=== PATIENT | female | born 1990 | race Asian ===

== ENCOUNTER → 2023-08-22 11:08 | Outpatient (REF) | payer OTHER, SELFPAY | LOC: REG 11:08 | PROVIDERS: ATTENDING PHYSICIAN Obstetrics & Gynecology | DX: Z34.93 Encounter for supervision of normal pregnancy, unspecified, third trimester (principal) | CPT/HCPCS: 36415; 86850; 86900; 86901; J2790 ==

== ENCOUNTER → 2023-08-23 08:59 | Outpatient (REF) | payer OTHER, SELFPAY | LOC: PNTC 08:59 | PROVIDERS: ATTENDING PHYSICIAN Obstetrics & Gynecology | DX: O36.5990 Maternal care for other known or suspected poor fetal growth, unspecified trimester, not applicable or unspecified (principal) | CPT/HCPCS: 76816 ==

== ENCOUNTER → 2023-10-26 11:14 | Outpatient (REF) | payer OTHER, SELFPAY | LOC: PNTC 11:14 | PROVIDERS: ATTENDING PHYSICIAN Obstetrics & Gynecology | DX: Z87.59 Personal history of other complications of pregnancy, childbirth and the puerperium (principal) | CPT/HCPCS: 36415; 76816; 86850; 86870; 86900; 86901 ==

== ENCOUNTER 2023-11-06 02:29 | Inpatient (IN) | payer OTHER, SELFPAY ==
[2023-11-06 02:42] VITALS: BMI 29.3
[2023-11-06 02:43] VITALS: BP 112/66
[2023-11-06] MEDS: PITOCIN 30 UNITS/NSS 500 ML IV (03:22)
[2023-11-06] MEDS: XYLOCAINE-MPF 1% VIAL 30 ML INFIL (03:25)
[2023-11-06 03:39] LABS: % Basophils 0.3 % (0-2); % Eosinophils 3.3 % (0-6); % Immature Granulocytes 0.9 % (0-0.5); % Lymphocytes 30.2 % (20.5-51.1); % Monocytes 8.4 % (1.7-9.3); % Neutrophils 56.9 % (42.2-75.2); Absolute Eosinophils 0.4 10^3/uL (0-0.7); Absolute Immature Granulocytes 0.1 10^3/uL (0-0.05); Absolute Lymphocytes 3.4 10^3/uL (1.2-3.4); Absolute Monocytes 0.9 10^3/uL (0.1-0.6); Absolute Neutrophils 6.3 10^3/uL (1.4-6.5); Hematocrit 36.6 % (37.0-47.0); Hemoglobin 13.1 g/dL (12.0-16.0); Mean Corp Hgb Conc. 35.8 g/dL (33.0-37.0); Mean Corpuscular Hgb 32.1 pg (27.0-31.0); Mean Corpuscular Volume 89.7 fL (81.0-99.0); Mean Platelet Volume 11.5 fL (7.4-10.4); Nucleated Red Blood Cells % 0 %; Platelet Count 172 10^3/uL (130-400); Red Blood Cell Count 4.08 10^6/uL (4.20-5.40); Red Cell Dist. Width 12.7 % (11.5-14.5); White Blood Cell Count 11.1 10^3/uL (4.8-10.8)
[2023-11-06] MEDS: MOTRIN 600 MG PO ×2 (04:43→16:28)
[2023-11-06] MEDS: PRENATAL PLUS PO (13:27)
[2023-11-07] MEDS: MOTRIN 600 MG PO ×2 (03:36→15:11)
[2023-11-07 06:22] LABS: Hematocrit 34.1 % (37.0-47.0); Hemoglobin 11.8 g/dL (12.0-16.0)
[2023-11-07] MEDS: PRENATAL PLUS 1 TABLET PO (07:42)
[2023-11-07] MEDS: HYPERRHO S-D 1500 UNIT IM (09:11)
[2023-11-08] MEDS: MOTRIN 600 MG PO ×2 (03:21→09:42)
[2023-11-08] MEDS: PRENATAL PLUS 1 TABLET PO (08:14)
[2023-11-08] MEDS: SENOKOT-S 1 TABLET PO (08:14)
--- NOTE | 2023-11-08 11:53 | CM ---
Met with new mother James at bedside
Mom reports she lives with her and 3 sons ages 9,8 and 18 months. Mom reports her is away on business and will return at the end of the week. She has support - father and other family members live nearby.
Mom has named her son Pinky Holland. She plans to breast feed her infant. She does not have a breast pump. Mom was given order form for breast pump with instructions.
Mom plans to take to [facility] for peds - appt scheduled for tomorrow
Mom reports she has supplies at home for infant - crib, car seat, clothing, etc
Given info on VN program through [facility] - Will send referral.
Given information on the WIC program and how to apply.
[2023-11-08 14:27] LABS: Syphilis/T. pallidum Ab Reflex Negative (Negative)
== END 2023-11-08 13:47 | disposition home or self-care (01) | DRG 807 ==
LOC: LDRP 02:29
PROVIDERS: ADMITTING PHYSICIAN Obstetrics & Gynecology; FAMILY PHYSICIAN Family Medicine
PROC: 6A550ZT Pheresis of Cord Blood Stem Cells, Single (ICD-10-PCS; 2023-11-06)
PROC: 0KQM0ZZ Repair Perineum Muscle, Open Approach (ICD-10-PCS; 2023-11-06)
PROC: 10E0XZZ Delivery of Products of Conception, External Approach (ICD-10-PCS; 2023-11-06)
PROC: 3E0234Z Introduction of Serum, Toxoid and Vaccine into Muscle, Percutaneous Approach (ICD-10-PCS; 2023-11-07)
DX: O69.81X0 Labor and delivery complicated by cord around neck, without compression, not applicable or unspecified (principal); Z37.0 Single live birth; Z3A.39 39 weeks gestation of pregnancy; O70.1 Second degree perineal laceration during delivery; Z23 Encounter for immunization; Z88.1 Allergy status to other antibiotic agents; Z91.013 Allergy to seafood
CPT/HCPCS: 85014; 85018; 85025; 85461; 86780; 86850; 86900; 86901; J2790

== ENCOUNTER → 2024-08-06 09:07 | Outpatient (REF) | payer OTHER, SELFPAY | LOC: RAD 09:07 | PROVIDERS: ATTENDING PHYSICIAN Student in an Organized Health Care Education/Training Program; FAMILY PHYSICIAN Family Medicine | DX: R10.2 Pelvic and perineal pain (principal) | CPT/HCPCS: 76830; 76856 ==

== ENCOUNTER 2024-08-30 11:48 | Emergency (ER) | payer OTHER, SELFPAY ==
[2024-08-30 11:58] VITALS: BP 103/56
[2024-08-30 12:02] VITALS: BP 100/66
[2024-08-30 12:31] LABS: % Basophils 0.4 % (0-2); % Eosinophils 2.5 % (0-6); % Immature Granulocytes 0.2 % (0-0.5); % Lymphocytes 44.5 % (20.5-51.1); % Monocytes 9.5 % (1.7-9.3); % Neutrophils 42.9 % (42.2-75.2); Absolute Eosinophils 0.1 10^3/uL (0-0.7); Absolute Lymphocytes 2.5 10^3/uL (1.2-3.4); Absolute Monocytes 0.5 10^3/uL (0.1-0.6); Absolute Neutrophils 2.5 10^3/uL (1.4-6.5); Hematocrit 37.1 % (37.0-47.0); Hemoglobin 12.5 g/dL (12.0-16.0); Mean Corp Hgb Conc. 33.7 g/dL (33.0-37.0); Mean Corpuscular Hgb 29.3 pg (27.0-31.0); Mean Corpuscular Volume 87.1 fL (81.0-99.0); Mean Platelet Volume 9.7 fL (7.4-10.4); Nucleated Red Blood Cells % 0 %; Platelet Count 237 10^3/uL (130-400); Red Blood Cell Count 4.26 10^6/uL (4.20-5.40); Red Cell Dist. Width 11.8 % (11.5-14.5); White Blood Cell Count 5.7 10^3/uL (4.8-10.8)
[2024-08-30 12:34] LABS: HCG, Serum Qualitative Screen Negative
[2024-08-30 12:46] LABS: ALT (SGPT) 14 U/L (0-35); AST (SGOT) 22 U/L (14-36); Albumin 4.3 g/dl (3.5-5.0); Alkaline Phosphatase 67 U/L (38-126); Blood Urea Nitrogen 12 mg/dl (7-17); Calcium 9.5 mg/dl (8.4-10.2); Carbon Dioxide 25 mmol/L (22-30); Chloride 104 mmol/L (98-107); Glucose 96 mg/dl (70-99); Potassium 4.1 mmol/L (3.5-5.1); Sodium 137 mmol/L (135-145); Total Bilirubin 0.4 mg/dl (0.2-1.3); Total Protein 6.9 g/dl (6.3-8.2); eGFR > 60.00
[2024-08-30 12:50] LABS: Troponin I < 0.012 ng/ml
--- NOTE | 2024-08-30 15:25 | ED.GENMED ---
History of Present Illness
<Edin Mireles Jr., PA-C - Last Filed: 08/30/24 15:29>
General
Chief Complaint: Numbness
Source: patient
Exam Limitations: none
Time Seen by Provider: 08/30/24 14:38
Nursing documentation reviewed up to this point in time: agreed with
History of Present Illness
History of Present Illness:
34-year-old female presenting to the emergency department today with concerns of tingling and paresthesia to her fingertips as well as toes over the past week initially was intermittent but somewhat ongoing over the past 2 days or so. Had a brief
episode of chest and back pain few days ago that is since resolved not ongoing. No shortness of breath no recent trauma surgery immobilization, history of blood clots.
Review of Systems
<RUPERTO Corado Jr. Last Filed: 08/30/24 15:29>
Review of Systems
Allergies reviewed?: Yes
All Other Systems: ROS reviewed and negative except as documented in HPI and ROS
Phy Exam
<RUPERTO Corado Jr. Last Filed: 08/30/24 15:29>
Physical Exam
Physical Exam:
GENERAL: Alert , in no apparent distress
EYE: pupils equal and reactive
NECK: Supple, no significant adenopathy.
ENT: o/p clr, mmm.
CARDIAC: Regular rate and rhythm .
LUNGS: Clear breath sounds bilaterally, no acute respiratory distress, no wheezes/rales/rhonchi
ABDOMEN: Soft, without focal tenderness, no r/g, no cvat
NEUROLOGICAL: Alert and oriented, patient claims that only on the palms of her fingers and soles of her feet very distally all of her toes that she have some slight decrease sensation no objective neurologic findings on normal neuroexam. 5 out of 5
upper and lower extremity strength normal sensation with palpating bilaterally normal patellar reflex as well as elbow reflex. Normal coordination with ambulation.
SKIN: Warm and dry, skin intact.
MUSCULOSKELETAL: No edema, well perfused.
PSYCH: Normal and appropriate interaction.
Course
<Edin Mireles Jr., PA-C - Last Filed: 08/30/24 15:29>
Orders/Labs/Results
Orders:
Orders
08/30/24 12:03
Electrocardiogram (*1) Urgent
Reason for Study: Chest Pain
EKG- Treatment ONCE
Test Result ONCE
08/30/24 12:12
Complete Blood Count/With Diff Urgent
Comprehensive Metabolic Panel Urgent
HCG, Serum Qualitative Screen Urgent
Lyme Progressive Urgent
Comment: ADD ON
TSH Reflex To Free T4 Urgent
Comment: ADD ON
Troponin I Urgent
Vitamin B12 Urgent
Comment: ADD ON
08/30/24 12:33
CT Head W/o Iv Contrast Urgent
Comment:
Reason For Exam: B/L upper and lower extremity numbness
08/30/24 14:48
Add On- LAB Urgent
Tests Added?: B12, tsh free t4, lyme progressive
Abnormal Lab Results
08/30/24
12:12
Monocytes % 9.5 H %
(1.7-9.3)
08/30/24 12:12
08/30/24 12:12
Vital Signs
Initial and Last Documented VS:
Initial Vital Signs
Temp Pulse Resp BP Pulse Ox
36.8 C 74 18 103/56 99
08/30/24 11:58 08/30/24 11:58 08/30/24 11:58 08/30/24 11:58 08/30/24 11:58
Last Documented Vital Signs
Temp Pulse Resp BP Pulse Ox
36.8 C 76 18 102/70 99
08/30/24 11:58 08/30/24 15:41 08/30/24 15:41 08/30/24 15:41 08/30/24 15:41
<Juan A Felder MD - Last Filed: 08/30/24 18:57>
Orders/Labs/Results
Orders:
Orders
08/30/24 12:03
Electrocardiogram (*1) Urgent
Reason for Study: Chest Pain
EKG- Treatment ONCE
Test Result ONCE
08/30/24 12:12
Complete Blood Count/With Diff Urgent
Comprehensive Metabolic Panel Urgent
HCG, Serum Qualitative Screen Urgent
Lyme Progressive Urgent
Comment: ADD ON
TSH Reflex To Free T4 Urgent
Comment: ADD ON
Troponin I Urgent
Vitamin B12 Urgent
Comment: ADD ON
08/30/24 12:33
CT Head W/o Iv Contrast Urgent
Comment:
Reason For Exam: B/L upper and lower extremity numbness
08/30/24 14:48
Add On- LAB Urgent
Tests Added?: B12, tsh free t4, lyme progressive
Abnormal Lab Results
08/30/24
12:12
Monocytes % 9.5 H %
(1.7-9.3)
08/30/24 12:12
08/30/24 12:12
Vital Signs
Initial and Last Documented VS:
Initial Vital Signs
Temp Pulse Resp BP Pulse Ox
36.8 C 74 18 103/56 99
08/30/24 11:58 08/30/24 11:58 08/30/24 11:58 08/30/24 11:58 08/30/24 11:58
Last Documented Vital Signs
Temp Pulse Resp BP Pulse Ox
36.8 C 76 18 102/70 99
08/30/24 11:58 08/30/24 15:41 08/30/24 15:41 08/30/24 15:41 08/30/24 15:41
<Edin Mireles Jr., PA-C - Last Filed: 08/30/24 15:29>
MDM/Problems Addressed
MDM/Problems Addressed:
34-year-old female presenting to the emergency department with concerns of paresthesias to her fingertips and toes over the past week or so. Here no objective findings but some slight decrease sensation that symmetrical bilaterally. Does not seem
to be consistent with Guillain-Celaya�. Labs unremarkable here. Normal head CT normal EKG. Advised for close outpatient follow-up. Return precautions given.
<Edin Mireles Jr., PA-C - Last Filed: 08/30/24 15:29>
*Critical Care Note
Total Time (30-74mins, 75-104mins- exclusive of procedures): Not Applicable
ED Attending Note
<Edin Mireles Jr., PA-C - Last Filed: 08/30/24 15:29>
-
Portions of this chart may have been created with voice recognition software.� Occasional wrong word or��sound alike� substitutions may have occurred due to the inherent limitations of voice recognition software.
<Juan A Felder MD - Last Filed: 08/30/24 18:57>
ED Attending Note
Patient seen and examined by attending physician: Yes
ED Attending Note:
I have seen and evaluated the patient with a [id number] encounter. I have spoken to the advance practicer provider and involved in the medical history, the physical exam, medical decision making.
Evaluation and management service: agree unless noted differently below.
Results interpretation: agree unless noted differently below.
Focused HPI: 34-year-old female presents to the ER for evaluation of paresthesias. Patient reports that she started about a week ago with paresthesias in her hands and feet. She says that occasionally paresthesias right upper shins. She says she
has associated feeling of cold in her fingers and toes. She denies any associated weakness. She denies any change in her vision or speech. She denies any other complaints. Her symptoms seem to be intermittent.
Physical exam: Awake alert not in distress. Vital signs normal. She has no objective motor or sensory deficits. Cranial nerves intact 2 through 12. Ambulatory with normal gait and no ataxia. She does have strong distal pulses radial and DP with
no signs of vascular compromise in extremities.
Medical Decision Makin-year-old female presents for evaluation of intermittent paresthesias in the hands and feet associated with a sensation of cold. She was ordered for labs which showed no electrolyte derangements, CT head was negative.
Low suspicion for emergent pathology�presentation is not consistent with Guillain-Celaya�. Could be Raynaud's phenomenon advised to avoid cold exposure, follow-up with PCP.
Discharge Plan
Departure
Patient Disposition: Home (Routine Discharge)
Date of Disposition: 08/30/24
Time of Disposition: 15:29
Patient with high blood pressure during this ER visit?: No
Condition: Good
Covid-19: Not Applicable
Discharge Problem:
Paresthesia
Instructions: Paresthesia (DC)
Prescriptions:
No Action
Vitamin
1 tab PO DAILY
ibuprofen 200 mg capsule
600 mg PO Q6HPRN PRN (Reason: moderate pain/cramps) Qty: 0 0RF
acetaminophen 325 mg Tablet
650 mg PO Q4HPRN PRN (Reason: mild pain) Qty: 0 0RF
Referrals:
Caty Hadley DO [Family Provider] -
Activity Restrictions/Additional Instructions:
You came to the emergency department today with concerns of paresthesias. Please follow-up closely with your outpatient doctor in the next week or so return for any worsening, new or concerning symptoms.
Interventions
Interventions:
*Risk Screen - Suicide Last Done: 08/30/24 11:58
*General Assessment Last Done: 08/30/24 11:58
*Neglect/Abuse Screening Last Done: 08/30/24 11:58
*ED COVID-19 Vaccine History Last Done: 08/30/24 11:58
*Nursing Disposition Last Done: 08/30/24 15:41
ED- Neurological Assessment Last Done: 08/30/24 13:33
Discharge Date and Time
Discharge Date/Time: 08/30/24 15:43
Print Language: RUSSIAN
[2024-08-30 15:41] VITALS: BP 102/70
[2024-08-30 16:07] LABS: TSH Reflex To Free T4 1.33 uIU/ml (0.47-4.68)
[2024-08-30 16:26] LABS: Vitamin B12 482 pg/ml (239-931)
[2024-09-02 13:18] LABS: Lyme Antibody Screen, EIA Negative (Negative)
== END 2024-08-30 15:43 | disposition home or self-care (01) ==
LOC: EMR 11:48
PROVIDERS: Emergency Medicine; EMERGENCY PHYSICIAN Emergency Medicine; FAMILY PHYSICIAN Family Medicine
DX: R20.2 Paresthesia of skin (principal)
CPT/HCPCS: 99284; 70450; 80053; 82607; 84443; 84484; 84703; 85025; 86618; 93005